=== PATIENT | female | born 1980 | race Caucasian/White ===

== ENCOUNTER 2017-12-17 12:50 | Emergency (ER) | payer OTHER ==
[2017-12-17 13:48] VITALS: BP 124/95
--- NOTE | 2017-12-17 13:54 | UC ---
Respiratory Complaint HPI - HPI Summary HPI Summary: 37 y/o female presents to the urgent care c/o persistent productive cough and now w/ wheezing and SOB for the past week 12/10/2017. Pt reports she lives in [place] and was Dx w/ Strep at and urgent care there about 1 week ago. She is PC allergic and was Rx Keflex PO. However, cough has worsen and is keeping her up at night. Yesterday she developed wheezing. Pt w/ Hx of asthma. She has been using her albuterol inhaler 4x/day. Pt denies fever, SOB, chest pain, abdominal pain, N/v/D. Pt states last Perturssis vaccine was on 2012 when she had her 2nd baby. Pt states her PCP last year Rx Z-lourdes and Tussionex PO for cough. Pt requests this medications. Pt is here on vacation. - History of Current Complaint Chief Complaint: UCRespiratory Stated Complaint: COUGH Time Seen by Provider: 12/17/17 13:52 Hx Obtained From: Patient Hx Last Menstrual Period: November 24/2018 Onset/Duration: Gradual Onset, Lasting Weeks - 1 week, Still Present, Worse Since - yesterday Timing: Constant Severity Initially: Mild Severity Currently: Moderate Pain Intensity: 2 Pain Scale Used: 0-10 Numeric Character: Cough: Nonproductive Aggravating Factors: Recumbent Position Alleviating Factors: Bronchodilator, Other - keflex PO Rx for her strep pharyngitis Associated Signs And Symptoms: Positive: Dyspnea, Wheezing - Risk Factors Pulmonary Embolism Risk Factors: Negative Cardiac Risk Factors: Negative Pseudomonas Risk Factors: Negative Tuberculosis Risk Factors: Negative - Allergies/Home Medications Allergies/Adverse Reactions: Allergies Allergy/AdvReac Type Severity Reaction Status Date / Time Penicillins Allergy Rash Verified 12/17/17 13:49 Home Medications: Home Medications Atorvastatin* [Lipitor 10 MG*] 12/17/17 [History] Guaifen/Dextromethorphan/PE [Cough-Cold Syrup] 12/17/17 [History] PMH/Surg Hx/FS Hx/Imm Hx Previously Healthy: Yes Endocrine History: Dyslipidemia Other Cardiovascular History: MVP Respiratory History: Asthma - Surgical History Surgical History: None - Family History Known Family History: Positive: Respiratory Disease - asthma - Social History Occupation: Employed Full-time Lives: With Family Alcohol Use: None Substance Use Type: None Smoking Status (MU): Never Smoked Tobacco - Immunization History Hx Pertussis Vaccine: 2012 Hx Tetanus, Diphtheria Vaccination: Yes Review of Systems Constitutional: Negative Skin: Negative Eyes: Negative ENT: Negative Respiratory: Shortness Of Breath, Cough - productive cough w/ yellowish phlegm, Other - wheezing Cardiovascular: Negative Gastrointestinal: Negative Genitourinary: Negative Motor: Negative Neurovascular: Negative Neurological: Negative Psychological: Negative Is Patient Immunocompromised?: No All Other Systems Reviewed And Are Negative: Yes Physical Exam - Summary Physical Exam Summary: Vital Signs Reviewed: Yes General: well developed, well nourished female sitting in the examining table w/ o any apparent distress Eyes: Positive: Conjunctiva Clear - PERRLA, EOMI, fundi grossly normal ENT: Positive: Normal ENT inspection, Hearing grossly normal, Pharynx normal, Nasal congestion - edematous and erythematous nasal mucosa, Nasal drainage - yellowish drainage, TMs normal. Negative: Tonsillar swelling, Tonsillar exudate Neck: Positive: Supple, Nontender, No Lymphadenopathy Respiratory: no orthopnea or dyspnea. Able to speak in full sentences, no retractions or accessory muscle use, no tripod position, stridor, or head bobbing. Positive breath sounds bilaterally, Positive scattered wheezing and rhonchi in B/L upper posterior lung, no crackles or, rales. Cardiovascular: Positive: RRR, No Murmur, Pulses Normal, Brisk Capillary Refill Abdomen Description: Positive: Nontender, No Organomegaly, Soft. Negative: CVA Tenderness (R), CVA Tenderness (L) Bowel Sounds: Positive: Present Musculoskeletal Exam: Normal Musculoskeletal: Positive: Strength Intact, ROM Intact, No Edema Neurological Exam: Normal Psychological Exam: Normal Skin Exam: Normal Triage Information Reviewed: Yes Vital Signs: Initial Vital Signs Temp 98.6 F 12/17/17 13:41 Pulse 89 12/17/17 13:41 Resp 16 12/17/17 13:41 BP 124/95 12/17/17 13:41 Pulse Ox 100 12/17/17 13:41 UC Diagnostic Evaluation - Laboratory O2 Sat by Pulse Oximetry: 100 Respiratory Course/Dx - Course Course Of Treatment: 37 y/o female presents to the urgent care c/o persistent productive cough and now w/ wheezing and SOB for the past week 12/10/2017. Pt reports she lives in [place] and was Dx w/ Strep at and urgent care there about 1 week ago. She is PC allergic and was Rx Keflex PO. However, cough has worsen and is keeping her up at night. Yesterday she developed wheezing. Pt w / Hx of asthma. She has been using her albuterol inhaler 4x/day. Pt denies fever , SOB, chest pain, abdominal pain, N/v/D. Pt states last Perturssis vaccine was on 2012 when she had her 2nd baby. Pt states her PCP last year Rx Z-lourdes and Tussionex PO for cough. Pt requests this medications. Pt is here on vacation. Hx obtained. Pt w/ an asthma exacerbation probably due to bronchitis. Albuterol Treatment: 1 Tx given to patient and Prednisone PO. Patient tolerated well treatment and lungs improved, no wheezing after treatment, O2 sat 100%. Patient prescribed Z-lourdes PO and Tussionex PO to alleviate cough, as directed below. The patient was recommended to stop Keflex PO to increase fluid intake. Take medications as recommended and patient advised to continue w / albuterol inhaler prn. Patient recommended to return to the clinic or go to the nearest ER if symptoms do not improve or worsen. Pt's BP is elevated today advised to decrease salt in diet, monitor BP and f/u with PCP for further management. Patient understood and agree w/ plan of care. - Differential Dx/Diagnosis Differential Diagnosis/HQI/PQRI: Asthma, Bronchitis, Laryngitis, Lower Resp Infection, Sinusitis, Other - Pertursis, pneumonia Provider Diagnoses: 1- Acute asthma exacerbation due to bronchitis. 2- Cough. 3- elevated BP w/o Hx of HTN Discharge - Sign-Out/Discharge Documenting (check all that apply): Patient Departure - D/C home - Discharge Plan Condition: Stable Disposition: HOME Prescriptions: Azithromyxin LOURDES (NF) [Z-Lourdes (Zithromax) 250 mg tabs #6] 2 tab PO .TODAY, THEN 1 DAILY #6 tab Hydrocodone/Chlorphen P-Stirex [Tussionex Pennkinetic Susp] 5 ml PO BID #1 [id number] MDD 10ml/day predniSONE TAB* [Deltasone 20 MG TAB*] 20 mg PO DAILY #8 tab Patient Education Materials: Asthma (ED), Low-Sodium Diet (ED), Wheezing (ED) Referrals: [facility] [place] [facility]ERR[facility] [Outside] - 3 Days Additional Instructions: 1- Take Prednisone PO taper dose as directed starting tomorrow. First loading dose given today. 2-continue using your albuterol inhaler to alleviate wheezing as directed . Increase fluid intake, rest and eat well. 3- Stop taking Keflex PO and start Z-lourdes as directed . 4- Take Tussionex PO as directed to alleviate cough. 5-If symptoms do not improve or worsen or your develop SOB with fever and severe wheezing please go immediately to the ER further evaluation and treatment. 6- F/u with your PCP in 3 days for further management on your Asthma 7-Your BP is elevated today. please decrease salt in your diet, monitor BP and if it continues to be elevated please f/u with your PCP for further management - Billing Disposition and Condition Condition: STABLE Disposition: Home
[2017-12-17] MEDS ORDERED: predniSONE TAB* 20 MG PO ONE (14:10)
[2017-12-17] MEDS ORDERED: Albuterol 2.5 MG/3 ML NEB.SOL* (0.083%) INH ONE (14:10)
== END 2017-12-17 14:55 | disposition home or self-care (01) ==
LOC: UCEAST 12:50
DX: J45.901 Unspecified asthma with (acute) exacerbation (principal); E78.5 Hyperlipidemia, unspecified; R05 Cough; R03.0 Elevated blood-pressure reading, without diagnosis of hypertension; Z79.899 Other long term (current) drug therapy; Z88.0 Allergy status to penicillin
CPT/HCPCS: 99202; G0463; J7512